=== PATIENT | male | born 1990 | race Caucasian/White ===

== ENCOUNTER → 2016-12-07 | Day surgery (SDC) | payer BC ==
[2016-11-29 08:19] VITALS: Ht 185.4 cm; Wt 90.9 kg
[~2016-12-07] VITALS: Ht 185.4 cm; Wt 90.9 kg
[~2016-12-07] MED LIST: FEXO1TAB49 PO; LIDOCAINE HCL 2% 2 ML VIAL (20MG/ML) ONE; PROPOFOL IV EMULSION 10 MG/ML 20 ML VIAL IV ONE
--- NOTE | 2016-12-07 10:00 | Endo History and Physical ---
History & Physical Date of Service: Dec 07, 2016. Chief Complaint: DIARRHEA Referring Physician: CASE History of Present Illness 26 yo CM who presents for colonoscopy secondary to diarrhea. Past Surgical History Hx Cardiac Surgery: No Hx Internal Defibrillator: No Hx Pacemaker: No Hx Abdominal Surgery: No Hx of Implantable Prosthesis: No Hx Post-Op Nausea and Vomiting: No Hx Cancer Surgery: No Hx Thoracic Surgery: No Hx Orthopedic: No Hx Urinary Tract Surgery: No Family History None Social History Smoking Status: Never Smoker Hx Substance Use: No Hx Alcohol Use: Yes (1-2 DRINKS EVERY COUPLE DAYS) Allergies Coded Allergies: No Known Allergies (Unverified , 12/07/16) Current Medications Reported Home Medications Medications Dose Route/Sig Max Daily Dose Days Date Category Elin Allergy (Fexofenadine Hcl) 180 Mg Tab 1 Tab PO DAILY PRN 11/29/16 Reported Vital Signs Weight (Kilograms): 90.91 Height (Feet): 6 Height (Inches): 1 Date Time Temp Pulse Resp B/P Pulse Ox O2 Delivery O2 Flow Rate FiO2 12/07/16 09:19 36.5 75 18 120/62 96 Room Air Physical Exam General Appearance: WD/WN, no apparent distress Respiratory/Chest: Auscultation: breath sounds normal Cardiovascular: Heart Auscultation: RRR Abdomen: Bowel Sounds: normal Inspection & Palpation: soft, non-distended, no tenderness, guarding & rebound Assessment and Plan Assessment: 26 yo CM who presents for colonoscopy secondary to diarrhea. Plan: Proceed with colonoscopy.
--- NOTE | 2016-12-07 10:22 | Discharge Instructions ---
Endoscopy Patient Instructions Date / Procedure(s) Performed Dec 07, 2016. Colonoscopy Allergy Information Coded Allergies: No Known Allergies (Unverified , 12/07/16) Discharge Date / Findings Dec 07, 2016. Random colon biopsies Random Terminal ileum biopsies Internal hemorrhoids Medication Instructions OK to resume all medications today as prescribed Reported Home Medications Medications Dose Route/Sig Max Daily Dose Days Date Category Elin Allergy (Fexofenadine Hcl) 180 Mg Tab 1 Tab PO DAILY PRN 11/29/16 Reported Provider Instructions Activity Restrictions - No exercising or heavy lifting for 24 hours. - Do not drink alcohol the day of the procedure. - Do not drive a car or operate machinery until the day after the procedure. - Do not make any important decisions or sign important papers in 24 hours after the procedure. Following Day: - Return to full activity which may include returning to work/school. Diet Start your diet with liquids and light foods (jello, soup, juice, toast). Then eat your usual diet if not nauseated. Treatment For Common After Affects For mild abdominal pain, bloating, or excessive gas: - Rest - Eat lightly - Lie on right side Follow-Up Information Follow-up with DR VILLA as scheduled Anesthesia Information What You Should Know You have had a procedure that required some medicine to reduce anxiety and discomfort. This treatment is called moderate sedation. After receiving the treatment, you may be sleepy, but you will be able to breathe on your own. The effects of the treatment may last for several hours. Follow these instructions along with Activity/Diet recommendations noted above: * Do NOT do anything where dizziness or clumsiness would be dangerous. * Rest quietly at home today, then you can be up and about tomorrow. * Have a responsible person stay with you the rest of today. * You may have had an I.V. today. If so, you may take the dressing off later today. Recommendations Call your doctor if: * Trouble breathing * Continuous vomiting for more than 24 hours * Temperature above 101 degrees * Severe abdominal pain or bloating * Pain not relieved by pain medicine ordered * There is increased drainage or redness from any incision * A large amount of rectal bleeding greater than 2-3 tablespoons. (If you had a polyp/s removed or have hemorrhoids, a small amount of blood - from the rectum is to be expected.) * You have any unanswered questions or concerns. IN THE EVENT OF A SERIOUS EMERGENCY, GO TO THE NEAREST EMERGENCY ROOM Your discharge instructions were prepared by provider Rex Villa. Patient Instructions Signature Page Gavin Tran Patient (or Guardian) Signature/Date: I have read and understand the instructions given to me by my caregivers. Caregiver/RN/Doctor Signature/Date: The above-named patient and/or guardian has received patient instructions on this date. + Original Patient Signature Page (only) stays with chart. Please make copy for patient.
--- NOTE | 2016-12-07 10:29 | GI REPORT ---
Procedure Date: 12/07/2016 10:01 AM Procedure: Colonoscopy Indications: Chronic diarrhea Medicines: Monitored Anesthesia Care Complications: No immediate complications. Estimated Blood Loss: Estimated blood loss: none. Procedure: Pre-Anesthesia Assessment: - Prior to the procedure, a History and Physical was performed, and patient medications and allergies were reviewed. The patient's tolerance of previous anesthesia was also reviewed. The risks and benefits of the procedure and the sedation options and risks were discussed with the patient. All questions were answered, and informed consent was obtained. Prior Anticoagulants: The patient has taken no previous anticoagulant or antiplatelet agents. ASA Grade Assessment: II - A patient with mild systemic disease. After reviewing the risks and benefits, the patient was deemed in satisfactory condition to undergo the procedure. After I obtained informed consent, the scope was passed under direct vision. Throughout the procedure, the patient's blood pressure, pulse, and oxygen saturations were monitored continuously. The scope was introduced through the anus and advanced to the terminal ileum. The colonoscopy was performed without difficulty. The patient tolerated the procedure well. The quality of the bowel preparation was good. The terminal ileum, ileocecal valve, appendiceal orifice, and rectum were photographed. Findings: The terminal ileum appeared normal. Biopsies were taken with a cold forceps for histology. The colon (entire examined portion) appeared normal. Biopsies were taken with a cold forceps for histology. Non-bleeding internal hemorrhoids were found during retroflexion. The hemorrhoids were small. Impression: - The examined portion of the ileum was normal. Biopsied. - The entire examined colon is normal. Biopsied. - Non-bleeding internal hemorrhoids. Recommendation: - Resume previous diet. - Continue present medications. - Repeat colonoscopy for surveillance based on pathology results. - Return to primary care physician as previously scheduled. Rex Hartley DO 12/07/2016 10:29:15 AM This report has been signed electronically. Note Initiated On: 12/07/2016 10:01 AM I attest to the content of the Intraoperative Record and orders documented therein, exceptions below
[2016-12-07 10:49] VITALS: BP 102/61; PULSE 60; O2SAT 97
--- NOTE | 2016-12-07 11:28 | Anesthesiology Progress Note ---
Anesthesia Post Op Note Date & Time Dec 07, 2016 at 11:29 Vital Signs Pain Intensity: 0 Vital Signs Past 12 Hours Date Time Temp Pulse Resp B/P Pulse Ox O2 Delivery O2 Flow Rate FiO2 12/07/16 10:49 60 16 102/61 97 Room Air 12/07/16 10:23 67 16 102/61 97 Room Air 12/07/16 09:19 36.5 75 18 120/62 96 Room Air Notes Mental Status: alert / awake / arousable, participated in evaluation Pt Amnestic to Procedure: Yes Nausea / Vomiting: adequately controlled Pain: adequately controlled Airway Patency, RR, SpO2: stable & adequate BP & HR: stable & adequate Hydration State: stable & adequate Anesthetic Complications: no major complications apparent
== END | disposition home or self-care (01) ==
LOC: C.GI 08:40
PROVIDERS: ATTEND Internal Medicine
DX: R19.7 Diarrhea, unspecified (principal); K64.8 Other hemorrhoids

== ENCOUNTER → 2017-04-24 | Outpatient (CLI) | payer BC ==
[~2017-04-24] MED LIST changes: -LIDOCAINE HCL 2% 2 ML VIAL (20MG/ML) ONE; -PROPOFOL IV EMULSION 10 MG/ML 20 ML VIAL IV ONE
--- NOTE | 2017-04-25 05:44 | PAP/PSG TECHNICIAN REPORT ---
[facility] Security Analyst Polysomnogram Report Study name: None Report date: 04/25/2017 Study date: 04/24/2017 Referring Physician: Danita FELIX M.D. Name: MAURISIO TRAN Interpreting Physician: Connie Felix M.D. Date of : 1990 Security Analyst: Anton Morataya RPSGT. Sex: Male Age: 27 StudyType: PSG Weight: 204 lbs 14.5 inches Height: 27 years, Height 6' 2" Neck Circum: BMI: 26.19 Medications: MOTRIN 400 MG, GLENN 180 MG Patient History PATIENT HAS HISTORY OF DAYTIME FATIGUE, LACK OF ENERGY, SNORING, AND NOCTURIA. HE IS HERE TODAY FOR AN EVALUATION FOR CLIVE. ESS = 8 RM 5 Parameters Monitored NPSG: E1-M2, E2-M1, Fp1-M2, Fp2-M1, F3-M2, F4-M2, F4-M1, C3-M2, C4-M2, C4-M1, O1-M2, O2-M2, O2-M1, T3-M2, T4-M1, P3-M2, P4-M1, CHIN1, CHIN2, HR, EKG, Legs, PFLOW, SNOR, FLOW, CFLOW, Tidal Volume, THOR, ABDO, SpO2, PLTH, CPRESS, ETCO2 Wave, ETCO2, pH Sleep Architecture Sleep Stages Time at Lights Off 10:29:20 PM STAGES Time (min.) TST (%) Time at Lights On 5:24:50 AM Wake 28.0 -- Total Recording Time (TRT) 416.00 min. N1 17.0 4 Total Sleep Period (TSP) 412.5 min. N2 218.5 56 Total Sleep Time (TST) 387.5min. N3 97.0 25 Awake Time 28.5 min. REM 55.0 14 Wake after Sleep Onset 25.0 min. Sleep Efficiency (SE) 93 % Sleep Onset Latency (WILBERT) 3.0 min. Number of Stage 1 Shifts None Awakenings 19 Stage Changes 96 Number of REM periods 10 REM 55.0 14 REM Latency 58.5 min. NREM 332.5 86 Body Position Analysis Supine Right Left Side Prone Vertical Total Sleep Time (min.) 31.9 164.3 196.8 361.16 0.0 0.0 Total Sleep Time (%) 7% 42% 51% 93 0% N/A% Total Sleep Time REM (min.) 0.0 28.5 26.5 None 0.0 0.0 Total Sleep Time NREM (min.) 26.3 135.8 170.3 None 0.0 0.0 Intermittent Wake (min.) 5.6 12.5 9.9 None 0.0 0.0 Total Sleep Period (%) 8% None None None None None Arousals Myoclonus (PLM) * Events Count Index Events Count Index Spontaneous 28 4 Events Awake (PLMW) 55 117.9 Respiratory 0 0.0 Events Asleep w/ Arousal (PLMA) 9 1.4 PLM 9 1 Events Asleep w/o Arousal (PLMS) 57 8.8 Snoring 4 1 Total Asleep 66 10.2 Total 41 6 Total 121 17 Respiratory Analysis * CA OA MA CH H RERA Total Count 0 0 0 0 0 0 0 Index 0.0 0.0 0.0 0 0.0 0 0.0 Mean Duration 0.0 0.0 0.0 0.00 0.0 0.0 0.0 Longest Duration 0.0 0.0 0.0 0.00 0.0 0.0 0.0 Respiratory Event Summary Total Supine ~Supine Right Left Prone REM NREM Apneas Count 0 0 0 0 0 N/A 0 0 Index 0.0 0 0 0.0 0.0 N/A 0 0 Hypopneas (4% Desat) Count 0 0 0 0 0 N/A 0 0 Index 0.0 0.0 0 0.0 0.0 N/A 0.0 0.0 Apneas & All Hypopneas Count 0 0 0 0 0 N/A 0 0 Index 0.0 0 0 0 0 N/A 0.0 0.0 Respiratory Events (Director Export+All Hyp+RERA) Count 0 0 0 0 0 N/A 0 0 Index 0.0 0 0 0.0 0.0 N/A 0.0 0.0 Respiratory Related Arousal Count 0 0 0 0 0 N/A 0 0 Index 0.0 0 0 0 0 N/A 0 0 Snoring Analysis Supine Right Left Prone REM NREM Total Snore duration 1.7 min Snores count 1 23 9 N/A 4 29 33 Snore mean duration 3.0 Sec Snores index 2 8 3 N/A 4.4 5.2 5.1 TST with snoring (%) 0.4% Desaturation Event Summary: Minimum %SpO2 Event Count Mean/Min/Max Duration(sec.) Desaturation Index % Time In Bed > 90 0 N/A 0.0 99.9 86 - 90 0 N/A 0.0 0.1 81 - 85 0 N/A 0.0 0.0 76 - 80 0 N/A 0.0 0.0 71 - 75 0 N/A 0.0 0.0 66 - 70 0 N/A 0.0 0.0 61 - 65 0 N/A 0.0 0.0 56 - 60 0 N/A 0.0 0.0 51 - 55 0 N/A 0.0 0.0 < 50 0 N/A 0.0 0.0 Total REM NREM Awake <50% 0.0 min. 0.0 min. 0.0 min. 0.0 min. 51 - 60% 0.0 min. 0.0 min. 0.0 min. 0.0 min. 61 - 70% 0.0 min. 0.0 min. 0.0 min. 0.0 min. 71 - 80% 0.0 min. 0.0 min. 0.0 min. 0.0 min. 81 - 90% 0.4 min. 0.0 min. 0.2 min. 0.3 min. 91 - 100% 413.8 min. 55.0 min. 331.6 min. 27.1 min. Average 94 94 93 94 Minimum SpO2 85 92 85 87 Desaturation Event Index 0.0 0.0 0.0 0.0 # Desat. Events below 89% 0 0 0 0 Time(%) with Saturation below 89% 0.0 0.0 0.0 0.0 Time(min.) with Saturation below 89% 0.2 0.0 0.1 0.1 Time (mins) REM (mins) NREM (mins) % of TST SpO2 Below 90% 0 0 N0 0.0 SpO2 Below 88% 387 55 332 0 Heart Rate Analysis Min (bpm) Max (bpm) Average (bpm) Awake 42 96 57 NREM 38 88 47 REM 39 68 49 Overall 38 88 47 Supplemental O2 Values Minimum O2 level: None Value Start Time End Time Security Analyst Comments Mr. Tran slept in the right, left and supine positions. No cardiac arrhythmia noted. Leg movements noted. No bruxism noted. Snoring was noted and scored as a 1 on a scale of 1 through 5. (0=no snoring, 5=snoring loud enough to be heard through a closed door or down the [address] way) Mr. Tran awoke to use the restroom 0 times during the night. Mr. Tran stated I did not sleep as well as I do when I am in my own bed. The final report will be interpreted and signed by a sleep physician. The completed physician report will then be placed in the patient medical record. Therapy (cm H2O) 0 TIB (min.) 415.5 TST (min.) 387.5 Sleep Onset (min.) 3.0 REM Onset From Sleep (min.) 58.5 Sleep Efficiency % 93 Wakefulness (%) 7 Wakefulness (min.) 28.5 NREM 1 (%) 4 NREM 1 (min.) 17.0 NREM 2 (%) 56 NREM 2 (min.) 218.5 NREM 3 (%) 25 NREM 3 (min.) 97.0 REM (%) 14 REM (min.) 55.0 # Arousals 41 Arousal Index 6 # Snore 33 Snore Index 5.1 AHI 0.0 AHI Supine 0 AHI Non-Supine 0 NREM AHI 0.0 REM AHI 0.0 RDI 0.0 # Obstructive Apnea 0 # Central Apnea 0 # Mixed Apnea 0 # Hypopneas 0 RERAs 0 Total Respiratory Events 0 Time Below SpO2 89% (min.) 0.1 Mean NREM SpO2 (%) 93 Mean REM SpO2 (%) 94 Mean Sleep SpO2 (%) 94 Min NREM SpO2 (%) 85 Min REM SpO2 (%) 92 Position Supine (min.) 31.9 Position Non-supine (min.) 361.2 LM Index Sleep 10.2 LM Index NREM 10.3 LM Index REM 9.8 Mean Heart Rate (bpm) 47 Min Heart Rate (bpm) 38
--- NOTE | 2017-05-09 21:08 | POLYSOMNOGRAPH REPORT ---
REFERRING PERSON: Dr. Steven Felix. GAS TORCH BRAZIER: Anton Morataya. Mr. Tran is a 27-year-old male with daytime fatigue, snoring and nocturia. He is here to rule out sleep-disordered breathing. His [place] sleepiness scale score on the evening of this study is 8. BMI is 26.19. Following the technical and digital specifications of the [place] [employer] (AASM) a standard diagnostic polysomnogram was performed monitoring EEG, EOG, EMG (chin and leg deviations), oxygen saturation, body position, digital video, respiratory effort and airflow. The sleep Stage and event scoring was based on the AASM Manual for the Scoring of Sleep and Associated Events 2007 edition. Apneas are defined as a drop in the peak thermal sensor excursion by >90% of baseline for at least 10 seconds. Hypopneas were scored using the 4% oxygen desaturation rule (4A-[employer]) and a decrease in the nasal pressure excursions by >30% of baseline for at least 10 seconds. Respiratory effort-related arousal (RERA's) is defined as a sequence of breaths lasting at least 10 seconds characterized by increasing respiratory effort or flattening of the nasal pressure waveform leading to an arousal from sleep when the sequence of breaths does not meet criteria for an apnea or hypopnea. Apnea Hypopnea index (AHI) is defined as the number of apneas and hypopneas occurring in an hour of sleep. Respiratory disturbance index (RDI) is defined as the number of apneas, hypopneas, and RERA's occurring in an hour of sleep. Mr. Tran's total sleep period time was 412.5 minutes. Total sleep time was 387.5 minutes. Sleep efficiency was 93%. Latency to sleep onset was 3 minutes with wake after sleep onset of 25 minutes. Total non-REM sleep time was 332.5 minutes. He spent 4% of that time in N1 sleep, 56% in N2 sleep, and 25% in N3 sleep. REM latency was 58.5 minutes. Total REM sleep time was 55 minutes or 14% of total sleep time. There were 41 cortical arousals from sleep. 28 of these arousals were spontaneous, 9 were due to periodic limb movements of sleep and 4 were due to snoring. There were 66 periodic limb movements noted on this test. Limb movement index was 10.2. Limb movement with arousal index was 1.4. There were no central obstructive or mixed apneas on this test, no hypopnea or RERA. Apnea-hypopnea index was 0. 33 snoring events were recorded. Total sleep time with snoring was 0.4%. Mean saturation was 94%. Saturations were less than 89% for 0.2 minutes of recorded time only. There was no cardiac ectopy. Heart rates ranged from a low of 38 beats per minute to a high of 88 beats per minute during sleep. IMPRESSION AND PLAN: A 27-year-old male without evidence of sleep-disordered breathing, nocturnal hypoxemia, bruxism or parasomnia on this study. He did not have clinically significant periodic limb movements of sleep.
== END | disposition home or self-care (01) ==
LOC: C.NEUR 21:00
PROVIDERS: ATTEND Family Medicine
DX: G47.10 Hypersomnia, unspecified (principal)